=== PATIENT | female | born 1950 | race Caucasian/White ===

== ENCOUNTER 2021-06-15 08:56 | Day surgery (SDC) | payer MEDICARE, OTHER ==
[2021-06-10 11:37] LABS: BASOPHILS # (AUTO) 0.1 X10'3 (0-0.2); BASOPHILS % (AUTO) 0.9 % (0-1); EOSINOPHILS # (AUTO) 0.1 X10'3 (0-0.9); EOSINOPHILS % (AUTO) 1.8 % (0-6); LYMPHOCYTES # (AUTO) 2.1 X10'3 (1.1-4.8); LYMPHOCYTES % (AUTO) 30.7 % (21-51); MEAN CORPUSCULAR HEMOGLOBIN 29.1 PG (27.0-31.0); MEAN CORPUSCULAR HGB CONC 32.7 g/dL (33.0-36.5); MEAN CORPUSCULAR VOLUME 88.9 FL (78-98); MEAN PLATELET VOLUME 9.2 FL (7.4-10.4); MONOCYTES # (AUTO) 0.9 X10'3 (0-0.9); NEUTROPHILS # (AUTO) 3.7 X10'3 (1.8-7.7); NEUTROPHILS % (AUTO) 53.6 % (42-75); PRE OP HEMATOCRIT 39.8 % (35.0-45.0); PRE OP PLATELET COUNT 255 X10'3 (140-440); RED BLOOD COUNT 4.48 X10'6 (4.20-5.60); RED CELL DISTRIBUTION WIDTH 14.3 % (11.5-14.5)
[2021-06-10 11:53] LABS: ALBUMIN 3.7 G/DL (3.4-5.0); ALBUMIN/GLOBULIN RATIO 1.1 (1.1-1.5); ALKALINE PHOSPHATASE 101 IU/L (46-116); BLOOD UREA NITROGEN 13 MG/DL (7-18); BUN/CREATININE RATIO 23.2 (6.6-38.0); CALCIUM 8.8 MG/DL (8.5-10.1); CHLORIDE 108 MMOL/L (99-107); CREATININE 0.56 MG/DL (0.40-0.90); PRE OP ALT 27 U/L (30-65); PRE OP ANION GAP 5 (8-16); PRE OP AST 18 U/L (10-37); PRE OP BILIRUB, TOTAL 0.3 MG/DL (0.0-1.0); PRE OP GLUCOSE 78 MG/DL (70-104); PRE OP POTASSIUM 4.4 MMOL/L (3.4-5.1); PRE OP SODIUM 144 MMOL/L (135-145); TOTAL CARBON DIOXIDE 31.5 MMOL/L (24-32); eGFR > 90 ML/MIN
[~2021-06-15] VITALS: Ht 162.6 cm; Wt 77.1 kg
[2021-06-15] VITALS (8 sets, daily range): BP systolic 120–138; BP diastolic 63–76
[~2021-06-15 08:56] MED LIST: B12 COMPLEX; CHOL400T8 PO; DOCO100C; MULT-1085 PO; cefazolin/dext.iso 2gm/50ml IV ONE; famotidine 20mg tablet PO ONE; ringers solution, lacted 1,000 ML IV SCH
[2021-06-15] MEDS ORDERED: morphine 2 MG/ML inj. syringe IV PRN (10:10)
[2021-06-15] MEDS ORDERED: ringers solution, lacted 1,000 ML IV SCH (10:10)
[2021-06-15] MEDS ORDERED: morphine 4 MG/ML inj SYRINge IV PRN (10:10)
[2021-06-15] MEDS ORDERED: ondansetron/PF 4mg/2ml inj IV PRN (10:10)
[2021-06-15] MEDS ORDERED: meperidine/PF 25mg/ml syringe IV PRN ×3 (10:10)
[2021-06-15] MEDS ORDERED: proCHLORperazine 10 MG/2 ml inj IV PRN (10:10)
[2021-06-15] MEDS ORDERED: LIDOcaine 1% 30ml preserv. free vial ONE (10:28)
[2021-06-15] MEDS ORDERED: BUPIVAcaine 0.5% inj/PF 30 ML ONE (10:28)
[2021-06-15] MEDS ORDERED: ondansetron/PF 4mg/2ml inj ONE (10:46)
[2021-06-15] MEDS ORDERED: sevoflurane 250ml liquid IH ONE (10:46)
[2021-06-15] MEDS ORDERED: midazolam 1 mg/ML 2ml injection ONE (10:53)
[2021-06-15] MEDS ORDERED: FENTANYL CITRATE/PF 50 MCG/1 ML VIAL ONE (10:53)
[2021-06-15] MEDS ORDERED: BUPIVAcaine 0.5% inj/PF 30 ml vial IJ ONE (11:20)
[2021-06-15] MEDS ORDERED: propofol inj 20 ML IV ONE (11:35)
[2021-06-15] MEDS ORDERED: dexamethasone sod phosphate 4mg/ml inj. ONE (11:35)
[2021-06-15] MEDS ORDERED: HYDROcodone/acetaminophen 5mg/325mg tablet PO PRN (11:50)
--- NOTE | 2021-06-15 11:50 | NUR ---
Received from OR via , accompanied by Anesthesiologist DR BECK and report given by Anesthesiolgist. PT PRESENTS WITH PIV 20G LEFT HAND, DRESSING ON LEFT THIGH CLEAN DRY AND INTACT. VSS.
--- NOTE | 2021-06-15 12:50 | NUR ---
DISCHARGE CRITERIA MET, DISCHARGE INSTRUCTIONS GIVEN TO PT, PT VERBALIZED UNDERSTANDING WITH NO FURTHER QUESTIONS AT THIS TIME. PT TAKEN OUT IN WHEELCHAIR TO PRIVATE VEHICLE WHERE WAS WAITING TO TAKE PT HOME. DISCHARGED HOME IN GOOD CONDITION Addendum: 06/15/21 at 1258 by Stacy rTinidad RN Amended: Links added.
== END 2021-06-15 12:50 | disposition home or self-care (01) ==
LOC: PAS 08:56
PROVIDERS: ATTEND Surgery
DX: M79.89 Other specified soft tissue disorders (principal); M19.90 Unspecified osteoarthritis, unspecified site; Z79.899 Other long term (current) drug therapy; Z87.891 Personal history of nicotine dependence; Z98.890 Other specified postprocedural states; Z86.19 Personal history of other infectious and parasitic diseases; Z20.822 Contact with and (suspected) exposure to COVID-19; Z80.8 Family history of malignant neoplasm of other organs or systems; Z83.6 Family history of other diseases of the respiratory system
CPT/HCPCS: 27328; 36415; 80053; 82948; 85025; J0690; J1100; J2250; J2405; J2704; J3010; J3490; J7030; J7120; S0020; U0003; U0005; Z7506; Z7508; Z7512; 88305; 88342; A4215; A4618; A6449; A7000